=== PATIENT | female | born 1955 | race Caucasian/White ===

== ENCOUNTER 2018-07-26 14:19 | Inpatient (IN) | payer OTHER ==
[2018-07-26 15:17] LABS: ADD MAN DIFF? NO
[2018-07-26 15:20] LABS: WHITE BLOOD COUNT 14.2 10^3/ul (4.8-10.8)
[2018-07-26 15:20] LABS: BASOPHIL # 0.1 10^3/ul (0.0-0.1); BASOPHILS % 0.4 % (0.0-2.0); EOSINOPHILS # 0.1 10^3/ul (0.0-0.5); EOSINOPHILS % 0.5 % (0.0-7.0); HEMATOCRIT 38.4 % (37.0-47.0); HEMOGLOBIN 12.4 g/dl (12.0-16.0); LYMPHOCYTES # 1.8 10^3/ul (0.8-2.9); LYMPHOCYTES % 12.7 % (15.0-51.0); MEAN CORPUSCULAR HEMOGLOBIN 27.4 pg (29.0-33.0); MEAN CORPUSCULAR HGB CONC 32.3 g/dl (32.0-37.0); MEAN PLATELET VOLUME 10.1 fl (7.4-10.4); MONOCYTE # 0.7 10^3/ul (0.3-0.9); NEUTROPHIL # 11.5 10^3/ul (1.6-7.5); PLATELET COUNT 419 10^3/UL (140-415); RED BLOOD COUNT 4.52 10^6/ul (4.20-5.40); RED CELL DISTRIBUTION WIDTH 14.4 % (11.5-14.5)
[2018-07-26 16:09] LABS: ANION GAP 10 (5-13); BLOOD UREA NITROGEN 29 mg/dl (7-20); CALCIUM 9.5 mg/dl (8.4-10.2); CARBON DIOXIDE 23 mmol/L (21-31); CHLORIDE 106 mmol/L (97-110); Estimated GFR > 60 mL/min (>60); GLUCOSE 198 mg/dl (70-220); POTASSIUM 3.6 mmol/L (3.5-5.1); SODIUM 139 mmol/L (135-144)
[2018-07-26] MEDS: CEFTRIAXONE 1 GM/50 ML (PMX) 50 ML IVPB (16:27)
[2018-07-26] MEDS: ONDANSETRON 4 MG INJ IV (16:28)
[2018-07-26] MEDS: morphine 4 MG/ML VIAL IV (16:28)
[2018-07-26] MEDS ORDERED: VANCOMYCIN IV PER PHARMACY XX (17:00)
[2018-07-26] MEDS ORDERED: ACETAMINOPHEN 325 MG TAB PO (17:00)
[2018-07-26] MEDS ORDERED: NACL 0.9% 3 ML SYG IV (17:00)
[2018-07-26] MEDS: ENALAPRILAT 1.25 MG INJ IV (17:10)
[2018-07-26] MEDS: VANCOMYCIN 1 GM (PMX) 250 ML IVPB (17:11)
[2018-07-26] MEDS ORDERED: LORAZEPAM 2 MG INJ IV (18:00)
[2018-07-26] MEDS ORDERED: ALBUTEROL 0.083% (NEB) 2.5 MG/3 ML AMP HHN (18:00)
[2018-07-26] MEDS: AMLODIPINE 5 MG TAB PO (18:26)
[2018-07-26] MEDS ORDERED: DEXTROSE 50% 50 ML SYRINGE IV ×2 (18:30)
[2018-07-26] MEDS ORDERED: GLUCOSE GEL 15 GRAM TUBE BUCCAL (18:30)
[2018-07-26] MEDS ORDERED: GLUCOSE GEL 15 GRAM TUBE PO ×2 (18:30)
[2018-07-26] MEDS ORDERED: GLUCAGON 1 MG INJ IM (18:30)
[2018-07-26 18:47] LABS: CREATINE KINASE 56 IU/L (23-200)
[2018-07-26 19:00] LABS: CK INDEX 1.7; CK-MB 0.93 ng/ml (0.0-2.4); TROPONIN-I < 0.012 ng/ml (0.000-0.120)
[2018-07-26] MEDS ORDERED: VANCOMYCIN 1 GM in 250 ML IVPB (19:00)
[2018-07-26 19:02] LABS: HEMOGLOBIN A1C 7.8 % (0-5.9)
[2018-07-26] MEDS: INSULIN ASPART [NOVOLOG] 3 ML PEN SC ×2 (21:00→23:27)
[2018-07-26] MEDS: TRIAMCINOLONE ACET 0.1% 15 GM OINT TOP (21:00)
[2018-07-26] MEDS: morphine 2 MG INJ IV (21:33)
[2018-07-26] MEDS: CEFTRIAXONE 1 GM/50 ML (PMX) 50 ML IV (21:36)
[2018-07-26] MEDS: ATORVASTATIN 20 MG TAB PO (21:37)
[2018-07-27 01:41] LABS: CREATINE KINASE 38 IU/L (23-200)
[2018-07-27 01:55] LABS: CK INDEX 2.4; CK-MB 0.93 ng/ml (0.0-2.4); TROPONIN-I < 0.012 ng/ml (0.000-0.120)
[2018-07-27 06:06] LABS: ADD MAN DIFF? NO
[2018-07-27 06:09] LABS: BASOPHIL # 0.1 10^3/ul (0.0-0.1); BASOPHILS % 0.6 % (0.0-2.0); EOSINOPHILS # 0.1 10^3/ul (0.0-0.5); EOSINOPHILS % 0.9 % (0.0-7.0); HEMATOCRIT 35.9 % (37.0-47.0); HEMOGLOBIN 10.9 g/dl (12.0-16.0); LYMPHOCYTES # 1.7 10^3/ul (0.8-2.9); LYMPHOCYTES % 15.3 % (15.0-51.0); MEAN CORPUSCULAR HEMOGLOBIN 26.5 pg (29.0-33.0); MEAN CORPUSCULAR HGB CONC 30.4 g/dl (32.0-37.0); MEAN CORPUSCULAR VOLUME 87.1 fl (82.0-101.0); MEAN PLATELET VOLUME 10.5 fl (7.4-10.4); MONOCYTE # 0.8 10^3/ul (0.3-0.9); MONOCYTES % 7.2 % (0.0-11.0); NEUTROPHIL # 8.2 10^3/ul (1.6-7.5); NEUTROPHILS % 75.4 % (39.0-77.0); PLATELET COUNT 386 10^3/UL (140-415); RED BLOOD COUNT 4.12 10^6/ul (4.20-5.40); RED CELL DISTRIBUTION WIDTH 14.6 % (11.5-14.5)
[2018-07-27 06:09] LABS: WHITE BLOOD COUNT 10.9 10^3/ul (4.8-10.8)
[2018-07-27 06:45] LABS: ALBUMIN 3.6 g/dl (3.3-4.9); ANION GAP 7 (5-13); BLOOD UREA NITROGEN 28 mg/dl (7-20); CALCIUM 8.9 mg/dl (8.4-10.2); CARBON DIOXIDE 26 mmol/L (21-31); CHLORIDE 108 mmol/L (97-110); CREATININE 0.64 mg/dl (0.44-1.00); GLUCOSE 114 mg/dl (70-220); MAGNESIUM 2.4 mg/dl (1.7-2.5); PHOSPHORUS 4.1 mg/dl (2.5-4.9); POTASSIUM 3.9 mmol/L (3.5-5.1); SODIUM 141 mmol/L (135-144)
[2018-07-27 06:52] LABS: CREATINE KINASE 30 IU/L (23-200)
[2018-07-27] MEDS: morphine 2 MG INJ IV ×2 (06:53→21:39)
[2018-07-27] MEDS: VANCOMYCIN 1 GM 250 ML IVPB ×2 (06:53→17:43)
[2018-07-27] MEDS: PANTOPRAZOLE 40 MG INJ IV (06:53)
[2018-07-27 06:55] LABS: CK INDEX 2.9; CK-MB 0.86 ng/ml (0.0-2.4); TROPONIN-I < 0.012 ng/ml (0.000-0.120)
[2018-07-27] MEDS: INSULIN ASPART [NOVOLOG] 3 ML PEN SC ×4 (07:58→21:20)
[2018-07-27] MEDS: hydrALAzine 20 MG INJ IV (08:33)
[2018-07-27] MEDS: METHYLPREDNISOLONE 40 MG INJ IV (08:33)
[2018-07-27] MEDS: ENOXAPARIN 40 MG/0.4 ML SYG SC (08:34)
[2018-07-27] MEDS: ONDANSETRON 4 MG INJ IV (09:11)
[2018-07-27] MEDS: AMLODIPINE 5 MG TAB PO (09:17)
[2018-07-27] MEDS: TRIAMCINOLONE ACET 0.1% 15 GM OINT TOP ×3 (13:00→21:23)
[2018-07-27] MEDS: CEFTRIAXONE 1 GM/50 ML (PMX) 50 ML IV (17:43)
[2018-07-27] MEDS: ATORVASTATIN 20 MG TAB PO (21:22)
[2018-07-28 04:01] LABS: ADD MAN DIFF? NO
[2018-07-28 04:25] LABS: ALBUMIN 3.5 g/dl (3.3-4.9); ANION GAP 8 (5-13); BLOOD UREA NITROGEN 29 mg/dl (7-20); CARBON DIOXIDE 25 mmol/L (21-31); CHLORIDE 106 mmol/L (97-110); CREATININE 0.58 mg/dl (0.44-1.00); GLUCOSE 154 mg/dl (70-220); MAGNESIUM 2.3 mg/dl (1.7-2.5); PHOSPHORUS 3.9 mg/dl (2.5-4.9); POTASSIUM 4.1 mmol/L (3.5-5.1); SODIUM 139 mmol/L (135-144)
[2018-07-28 04:28] LABS: VANCOMYCIN,TROUGH 13.5 ug/ml (10.0-20.0)
[2018-07-28 04:42] LABS: BASOPHILS % 0.2 % (0.0-2.0); EOSINOPHILS % 0.1 % (0.0-7.0); HEMATOCRIT 34.6 % (37.0-47.0); LYMPHOCYTES # 1.2 10^3/ul (0.8-2.9); LYMPHOCYTES % 9.3 % (15.0-51.0); MEAN CORPUSCULAR HEMOGLOBIN 27.4 pg (29.0-33.0); MEAN CORPUSCULAR HGB CONC 31.8 g/dl (32.0-37.0); MEAN CORPUSCULAR VOLUME 86.1 fl (82.0-101.0); MEAN PLATELET VOLUME 10.4 fl (7.4-10.4); MONOCYTE # 0.6 10^3/ul (0.3-0.9); NEUTROPHIL # 10.5 10^3/ul (1.6-7.5); NEUTROPHILS % 84.8 % (39.0-77.0); PLATELET COUNT 404 10^3/UL (140-415); RED BLOOD COUNT 4.02 10^6/ul (4.20-5.40); RED CELL DISTRIBUTION WIDTH 14.5 % (11.5-14.5)
[2018-07-28 04:42] LABS: WHITE BLOOD COUNT 12.4 10^3/ul (4.8-10.8)
[2018-07-28] MEDS: PANTOPRAZOLE 40 MG INJ IV (04:54)
[2018-07-28] MEDS: VANCOMYCIN 1 GM 250 ML IVPB ×2 (04:54→17:26)
[2018-07-28] MEDS: INSULIN ASPART [NOVOLOG] 3 ML PEN SC ×4 (08:00→20:32)
[2018-07-28] MEDS: hydrALAzine 20 MG INJ IV (08:14)
[2018-07-28] MEDS: METHYLPREDNISOLONE 40 MG INJ IV (08:14)
[2018-07-28] MEDS: AMLODIPINE 10 MG TAB PO (08:14)
[2018-07-28] MEDS: ENOXAPARIN 40 MG/0.4 ML SYG SC (08:15)
[2018-07-28] MEDS: TRIAMCINOLONE ACET 0.1% 15 GM OINT TOP ×3 (09:04→20:26)
[2018-07-28] MEDS: morphine 2 MG INJ IV ×3 (09:04→19:59)
[2018-07-28] MEDS: LISINOPRIL 10 MG TAB PO (10:01)
[2018-07-28] MEDS: NEOMYC/POLYMYX/BACIT 0.9 GM OINT TOP (15:25)
[2018-07-28] MEDS: NEOMYC/POLYMYX/BACIT 30 GM OINT TOP ×2 (15:48→20:25)
[2018-07-28] MEDS: CEFTRIAXONE 1 GM/50 ML (PMX) 50 ML IV (16:00)
[2018-07-28] MEDS: ATORVASTATIN 20 MG TAB PO (20:25)
[2018-07-29] MEDS: VANCOMYCIN 1 GM 250 ML IVPB ×2 (05:21→17:39)
[2018-07-29] MEDS: PANTOPRAZOLE 40 MG INJ IV (05:21)
[2018-07-29 05:43] LABS: ADD MAN DIFF? NO
[2018-07-29 05:47] LABS: WHITE BLOOD COUNT 11.2 10^3/ul (4.8-10.8)
[2018-07-29 05:47] LABS: BASOPHILS % 0.3 % (0.0-2.0); EOSINOPHILS # 0.1 10^3/ul (0.0-0.5); EOSINOPHILS % 0.4 % (0.0-7.0); HEMATOCRIT 35.9 % (37.0-47.0); HEMOGLOBIN 11.2 g/dl (12.0-16.0); LYMPHOCYTES # 1.8 10^3/ul (0.8-2.9); LYMPHOCYTES % 15.7 % (15.0-51.0); MEAN CORPUSCULAR HEMOGLOBIN 27.1 pg (29.0-33.0); MEAN CORPUSCULAR HGB CONC 31.2 g/dl (32.0-37.0); MEAN CORPUSCULAR VOLUME 86.9 fl (82.0-101.0); MONOCYTE # 0.7 10^3/ul (0.3-0.9); MONOCYTES % 6.3 % (0.0-11.0); NEUTROPHIL # 8.6 10^3/ul (1.6-7.5); NEUTROPHILS % 76.7 % (39.0-77.0); PLATELET COUNT 419 10^3/UL (140-415); RED BLOOD COUNT 4.13 10^6/ul (4.20-5.40); RED CELL DISTRIBUTION WIDTH 14.9 % (11.5-14.5)
[2018-07-29] MEDS: morphine 2 MG INJ IV ×2 (05:58→21:17)
[2018-07-29 06:12] LABS: ALBUMIN 3.8 g/dl (3.3-4.9); ANION GAP 8 (5-13); BLOOD UREA NITROGEN 32 mg/dl (7-20); CALCIUM 9.3 mg/dl (8.4-10.2); CARBON DIOXIDE 27 mmol/L (21-31); CHLORIDE 105 mmol/L (97-110); CREATININE 0.65 mg/dl (0.44-1.00); GLUCOSE 129 mg/dl (70-220); MAGNESIUM 2.3 mg/dl (1.7-2.5); PHOSPHORUS 3.3 mg/dl (2.5-4.9); POTASSIUM 3.9 mmol/L (3.5-5.1); SODIUM 140 mmol/L (135-144)
[2018-07-29] MEDS: INSULIN ASPART [NOVOLOG] 3 ML PEN SC ×4 (08:00→21:13)
[2018-07-29] MEDS: LISINOPRIL 10 MG TAB PO ×2 (08:43→10:27)
[2018-07-29] MEDS: AMLODIPINE 10 MG TAB PO (08:43)
[2018-07-29] MEDS: ENOXAPARIN 40 MG/0.4 ML SYG SC (08:47)
[2018-07-29] MEDS: LISINOPRIL 20 MG TAB PO (09:00)
[2018-07-29] MEDS: NEOMYC/POLYMYX/BACIT 30 GM OINT TOP ×2 (10:28→21:05)
[2018-07-29] MEDS: TRIAMCINOLONE ACET 0.1% 15 GM OINT TOP ×3 (10:28→21:06)
[2018-07-29] MEDS: predniSONE 10 MG TAB PO (10:28)
[2018-07-29] MEDS: HYDROCHLOROTHIAZIDE 12.5 MG CAP PO (12:14)
[2018-07-29] MEDS: CEFTRIAXONE 1 GM/50 ML (PMX) 50 ML IV (16:58)
[2018-07-29] MEDS: MAGNESIUM HYDROXIDE 30ML CUP PO (17:44)
[2018-07-29] MEDS: ATORVASTATIN 20 MG TAB PO (21:05)
[2018-07-30] MEDS: PANTOPRAZOLE 40 MG INJ IV (05:02)
[2018-07-30] MEDS: VANCOMYCIN 1 GM 250 ML IVPB (05:02)
[2018-07-30] MEDS: INSULIN ASPART [NOVOLOG] 3 ML PEN SC ×4 (08:00→21:39)
[2018-07-30] MEDS: ENOXAPARIN 40 MG/0.4 ML SYG SC (08:19)
[2018-07-30] MEDS: LISINOPRIL 20 MG TAB PO (08:20)
[2018-07-30] MEDS: AMLODIPINE 10 MG TAB PO (08:20)
[2018-07-30] MEDS: predniSONE 10 MG TAB PO (08:21)
[2018-07-30] MEDS: HYDROCHLOROTHIAZIDE 12.5 MG CAP PO ×2 (08:21→09:20)
[2018-07-30] MEDS: NEOMYC/POLYMYX/BACIT 30 GM OINT TOP ×2 (08:25→21:37)
[2018-07-30] MEDS: TRIAMCINOLONE ACET 0.1% 15 GM OINT TOP ×3 (08:25→21:36)
[2018-07-30] MEDS: morphine 2 MG INJ IV ×2 (08:30→21:44)
[2018-07-30] MEDS: CEPHALEXIN 500 MG CAP PO ×2 (13:13→21:36)
[2018-07-30] MEDS: DOXYCYCLINE 100 MG TAB PO ×2 (13:13→21:36)
[2018-07-30 16:57] LABS: AADO2 Arterial 85.1 mmHg (7.0-24.0); Allen Test ACCEPTAB; Arterial Base Excess 1.9 mmol/L (-3.0-3); Arterial Blood Gas Oxygen Sat 98.4 mmHG (95.0-98.0); Arterial COHb 0.3 % (0.0-3.0); Arterial Fraction of Oxyhgb 97.4 % (93.0-99.0); Arterial MetHb 0.7 % (0.0-1.5); Arterial Total Hemglobin 13.1 g/dl (12.0-18.0); Arterial pCO2 30.1 mmhg (35-45); MODE NASAL CANNULA; Site Right Radial
[2018-07-30] MEDS: ATORVASTATIN 20 MG TAB PO (21:36)
[2018-07-31] MEDS: PANTOPRAZOLE 40 MG INJ IV (05:08)
[2018-07-31 06:00] LABS: BLOOD UREA NITROGEN 35 mg/dl (7-20)
[2018-07-31 06:00] LABS: CREATININE 0.92 mg/dl (0.44-1.00)
[2018-07-31] MEDS: DOCUSATE SODIUM 100 MG CAP PO (06:13)
[2018-07-31] MEDS: HYDROCHLOROTHIAZIDE 25 MG TAB PO (06:13)
[2018-07-31] MEDS: INSULIN ASPART [NOVOLOG] 3 ML PEN SC ×5 (07:56→21:43)
[2018-07-31] MEDS: ENOXAPARIN 40 MG/0.4 ML SYG SC (08:49)
[2018-07-31] MEDS: predniSONE 20 MG TAB PO (08:49)
[2018-07-31] MEDS: AMLODIPINE 10 MG TAB PO (08:49)
[2018-07-31] MEDS: LISINOPRIL 20 MG TAB PO (08:50)
[2018-07-31] MEDS: CEPHALEXIN 500 MG CAP PO ×2 (08:50→22:18)
[2018-07-31] MEDS: DOXYCYCLINE 100 MG TAB PO ×2 (08:50→22:18)
[2018-07-31] MEDS: TRIAMCINOLONE ACET 0.1% 15 GM OINT TOP (08:50)
[2018-07-31] MEDS: NEOMYC/POLYMYX/BACIT 30 GM OINT TOP ×2 (08:51→21:44)
[2018-07-31] MEDS: morphine 2 MG INJ IV ×2 (09:06→13:50)
[2018-07-31] MEDS: METHYLPREDNISOLONE 40 MG INJ IV (12:05)
[2018-07-31] MEDS: BETAMETHASONE VAL TOP ×2 (13:45→21:44)
[2018-07-31] MEDS: morphine LIQ (10 MG/5 ML) CUP PO (19:52)
[2018-07-31] MEDS: ATORVASTATIN 20 MG TAB PO (21:44)
[2018-07-31] MEDS: HYDROCODONE/APAP (5/325) TAB PO (21:47)
[2018-08-01] MEDS: PANTOPRAZOLE (EC) 40 MG TAB PO (05:20)
[2018-08-01] MEDS: HYDROCHLOROTHIAZIDE 25 MG TAB PO (05:24)
[2018-08-01] MEDS: INSULIN ASPART [NOVOLOG] 3 ML PEN SC ×4 (08:20→20:30)
[2018-08-01] MEDS: ENOXAPARIN 40 MG/0.4 ML SYG SC (08:46)
[2018-08-01] MEDS: NEOMYC/POLYMYX/BACIT 30 GM OINT TOP ×2 (08:51→20:29)
[2018-08-01] MEDS: CEPHALEXIN 500 MG CAP PO ×2 (08:51→20:29)
[2018-08-01] MEDS: BETAMETHASONE VAL TOP ×2 (08:52→20:30)
[2018-08-01] MEDS: AMLODIPINE 10 MG TAB PO (08:52)
[2018-08-01] MEDS: METHYLPREDNISOLONE 40 MG INJ IV (08:52)
[2018-08-01] MEDS: LISINOPRIL 20 MG TAB PO (08:53)
[2018-08-01] MEDS: morphine LIQ (10 MG/5 ML) CUP PO ×2 (08:53→21:16)
[2018-08-01] MEDS: DOXYCYCLINE 100 MG TAB PO ×2 (08:53→22:37)
[2018-08-01] MEDS: HYDROCODONE/APAP (5/325) TAB PO ×2 (17:36→23:40)
[2018-08-01] MEDS: ATORVASTATIN 20 MG TAB PO (20:29)
[2018-08-02 05:08] LABS: ADD MAN DIFF? NO
[2018-08-02 05:10] LABS: WHITE BLOOD COUNT 15.5 10^3/ul (4.8-10.8)
[2018-08-02 05:10] LABS: BASOPHILS % 0.1 % (0.0-2.0); EOSINOPHILS % 0.3 % (0.0-7.0); HEMATOCRIT 36.6 % (37.0-47.0); HEMOGLOBIN 11.8 g/dl (12.0-16.0); LYMPHOCYTES # 2.3 10^3/ul (0.8-2.9); LYMPHOCYTES % 14.7 % (15.0-51.0); MEAN CORPUSCULAR HEMOGLOBIN 27.3 pg (29.0-33.0); MEAN CORPUSCULAR HGB CONC 32.2 g/dl (32.0-37.0); MEAN CORPUSCULAR VOLUME 84.7 fl (82.0-101.0); MEAN PLATELET VOLUME 10.3 fl (7.4-10.4); MONOCYTE # 0.9 10^3/ul (0.3-0.9); MONOCYTES % 5.9 % (0.0-11.0); NEUTROPHIL # 12.2 10^3/ul (1.6-7.5); NEUTROPHILS % 78.2 % (39.0-77.0); PLATELET COUNT 440 10^3/UL (140-415); RED BLOOD COUNT 4.32 10^6/ul (4.20-5.40); RED CELL DISTRIBUTION WIDTH 14.6 % (11.5-14.5)
[2018-08-02] MEDS: PANTOPRAZOLE (EC) 40 MG TAB PO (05:19)
[2018-08-02] MEDS: HYDROCHLOROTHIAZIDE 25 MG TAB PO (05:21)
[2018-08-02 05:37] LABS: ALBUMIN 3.7 g/dl (3.3-4.9); ANION GAP 9 (5-13); BLOOD UREA NITROGEN 55 mg/dl (7-20); CARBON DIOXIDE 24 mmol/L (21-31); CHLORIDE 104 mmol/L (97-110); CREATININE 0.76 mg/dl (0.44-1.00); GLUCOSE 147 mg/dl (70-220); PHOSPHORUS 4.5 mg/dl (2.5-4.9); POTASSIUM 4.4 mmol/L (3.5-5.1); SODIUM 137 mmol/L (135-144)
[2018-08-02] MEDS: INSULIN ASPART [NOVOLOG] 3 ML PEN SC ×4 (08:00→18:20)
[2018-08-02] MEDS: CEPHALEXIN 500 MG CAP PO (09:29)
[2018-08-02] MEDS: METHYLPREDNISOLONE 40 MG INJ IV (09:30)
[2018-08-02] MEDS: HYDROCODONE/APAP (5/325) TAB PO ×2 (09:31→16:35)
[2018-08-02] MEDS: AMLODIPINE 10 MG TAB PO (09:31)
[2018-08-02] MEDS: DOXYCYCLINE 100 MG TAB PO (09:31)
[2018-08-02] MEDS: LISINOPRIL 20 MG TAB PO (09:31)
[2018-08-02] MEDS: INSULIN ASP PROT/ASPART (70/30) PEN SC (09:32)
[2018-08-02] MEDS: BETAMETHASONE VAL TOP (09:33)
[2018-08-02] MEDS: ENOXAPARIN 40 MG/0.4 ML SYG SC (09:33)
[2018-08-02] MEDS: NEOMYC/POLYMYX/BACIT 30 GM OINT TOP (09:33)
[2018-08-02] MEDS: INSULIN GLARGINE [LANTus] (100 UNITS/ML) SYG SC (18:21)
== END 2018-08-02 20:30 | disposition home or self-care (01) | DRG 603 ==
LOC: E/R 14:19 → PP2 16:34
DX: L03.116 Cellulitis of left lower limb (principal); I16.1 Hypertensive emergency; I69.351 Hemiplegia and hemiparesis following cerebral infarction affecting right dominant side; L03.115 Cellulitis of right lower limb; E86.0 Dehydration; L40.9 Psoriasis, unspecified; I10 Essential (primary) hypertension; E11.9 Type 2 diabetes mellitus without complications; R07.89 Other chest pain; I69.922 Dysarthria following unspecified cerebrovascular disease; D72.829 Elevated white blood cell count, unspecified; T38.0X5A Adverse effect of glucocorticoids and synthetic analogues, initial encounter; E11.65 Type 2 diabetes mellitus with hyperglycemia; Z99.3 Dependence on wheelchair
CPT/HCPCS: 36415; 36600; 71045; 80048; 80069; 80202; 82550; 82553; 82565; 82803; 82962; 83036; 83735; 84484; 84520; 85025; 87040; 92507; 92523; 93306; 96374; 96375; 97110; 97163; 97165; 97530; 99285-25

== ENCOUNTER 2019-06-18 12:07 | Emergency (ER) | payer OTHER ==
[2019-06-18 12:55] LABS: ADD MAN DIFF? NO
[2019-06-18] MEDS: CLINDAMYCIN 600 MG/D5W (PMX) 50 ML IVPB (12:55)
[2019-06-18] MEDS: ONDANSETRON 4 MG INJ IV (12:55)
[2019-06-18] MEDS: DEXAMETHASONE 10 MG/ML 1 ML INJ IV (12:55)
[2019-06-18] MEDS: SOD CHLORIDE 0.9% 1,000 ML IV (12:56)
[2019-06-18] MEDS: HYDROmorphONE 1 MG/ML SYG IV (12:56)
[2019-06-18 13:01] LABS: BASOPHIL # 0.1 10^3/ul (0.0-0.1); BASOPHILS % 0.3 % (0.0-2.0); EOSINOPHILS % 0.1 % (0.0-7.0); HEMATOCRIT 38.9 % (37.0-47.0); HEMOGLOBIN 12.4 g/dl (12.0-16.0); LYMPHOCYTES # 1.8 10^3/ul (0.8-2.9); LYMPHOCYTES % 11.7 % (15.0-51.0); MEAN CORPUSCULAR HGB CONC 31.9 g/dl (32.0-37.0); MEAN CORPUSCULAR VOLUME 87.8 fl (82.0-101.0); MEAN PLATELET VOLUME 10.3 fl (7.4-10.4); MONOCYTE # 0.9 10^3/ul (0.3-0.9); MONOCYTES % 5.7 % (0.0-11.0); NEUTROPHIL # 12.3 10^3/ul (1.6-7.5); NEUTROPHILS % 81.6 % (39.0-77.0); PLATELET COUNT 490 10^3/UL (140-415); RED BLOOD COUNT 4.43 10^6/ul (4.20-5.40); RED CELL DISTRIBUTION WIDTH 13.8 % (11.5-14.5)
[2019-06-18 13:20] LABS: ANION GAP 10 (5-13); BLOOD UREA NITROGEN 32 mg/dl (7-20); CALCIUM 9.9 mg/dl (8.4-10.2); CARBON DIOXIDE 25 mmol/L (21-31); CHLORIDE 106 mmol/L (97-110); CREATININE 0.98 mg/dl (0.44-1.00); Estimated GFR 57 mL/min (>60); GLUCOSE 116 mg/dl (70-220); POTASSIUM 4.1 mmol/L (3.5-5.1); SODIUM 141 mmol/L (135-144)
[2019-06-18] MEDS: NEOMYC/POLYMYX/BACIT 30 GM OINT TOP (14:40)
== END 2019-06-18 15:19 | disposition home or self-care (01) ==
LOC: E/R 12:07
DX: L40.0 Psoriasis vulgaris (principal); L03.116 Cellulitis of left lower limb; I10 Essential (primary) hypertension; E11.9 Type 2 diabetes mellitus without complications; J45.909 Unspecified asthma, uncomplicated; Z86.73 Personal history of transient ischemic attack (TIA), and cerebral infarction without residual deficits; Z79.4 Long term (current) use of insulin
CPT/HCPCS: 36415; 80048; 85025; 96374; 96375; 99284-25